=== PATIENT | male | born 1970 | race Caucasian/White ===

== ENCOUNTER 2020-05-10 10:32 | Observation (INO) ==
[2020-05-10 11:52] LABS: Basophils % 0.4 %; Eosinophils # 0.1 K/mcL (0.0-0.6); Eosinophils % 1.7 %; Hematocrit 50.5 % (37.5-50.1); Hemoglobin 17.3 g/dL (12.9-16.9); Immature Granulocytes % 0.3 % (0-4); Lymphocytes # 3.1 K/mcL (0.6-4.6); Lymphocytes % 40.6 %; Mean Corpuscular HGB Conc 34.3 g/dL (31.6-35.5); Mean Corpuscular Hemoglobin 31.1 pg (28.0-33.3); Mean Corpuscular Volume 90.8 fL (83.0-100.0); Mean Platelet Volume 10.6 fL (9.4-12.4); Monocytes # 0.7 K/mcL (0.0-1.3); Monocytes % 9.3 %; Neutrophils # 3.6 K/mcL (1.6-8.9); Platelet Count 208 K/mcL (140-400); Red Blood Count 5.56 M/mcL (4.19-5.50); Segmented Neutrophils % 47.7 %; White Blood Count 7.5 K/mcL (4.3-11.1)
[2020-05-10 11:55] LABS: INR 1.1; Prothrombin Time 12.4 Seconds (9.4-12.1)
[2020-05-10 11:58] LABS: Activated Partial Thrombo Time 30.9 Seconds (26.0-36.0)
[2020-05-10 12:12] LABS: BUN/Creatinine Ratio 12 (6-26); Blood Urea Nitrogen 13 mg/dL (6-20); Carbon Dioxide 25 mEq/L (23-29); Chloride 103 mEq/L (98-107); Glucose 105 mg/dL (70-105); Osmolality,Calculated 284 (280-300); Potassium 3.1 mEq/L (3.5-5.1); Sodium 137 mEq/L (136-145); eGFR For African Americans > 60 (> 60); eGFR For Non-African Americans > 60 (> 60)
[2020-05-10 12:22] LABS: Troponin I 0.06 ng/mL (< 0.04)
[2020-05-10] MEDS ORDERED: Aspirin 81 MG TAB.CHEW PO ONE (12:23)
[2020-05-10] MEDS ORDERED: Potassium Chloride Elixir 20 MEQ/15 ML UDC PO ONE (12:24)
[2020-05-10] MEDS ORDERED: *HR* Heparin 5,000 UNIT/ML VIAL IVP ONE (13:21)
[2020-05-10] MEDS ORDERED: Nitroglycerin 0.4 MG TAB.SUBL SL PRN (13:21)
[2020-05-10] MEDS ORDERED: *HR* Heparin 5,000 UNIT/ML VIAL IVP PRN ×2 (13:21)
[2020-05-10 14:07] LABS: Hematocrit 49.1 % (37.5-50.1); Hemoglobin 16.7 g/dL (12.9-16.9); Mean Corpuscular Hemoglobin 30.7 pg (28.0-33.3); Mean Corpuscular Volume 90.3 fL (83.0-100.0); Mean Platelet Volume 10.5 fL (9.4-12.4); Platelet Count 203 K/mcL (140-400); Red Blood Count 5.44 M/mcL (4.19-5.50); Red Cell Distribution Width 12.9 % (11.5-14.5); White Blood Count 7.8 K/mcL (4.3-11.1)
[2020-05-10 14:11] LABS: Heparin anti-factor XA UFH < 0.04 IU/mL (0.30-0.70); Prothrombin Time 12.1 Seconds (9.4-12.1)
[2020-05-10] MEDS: Heparin 25,000UNIT/250ML 1/2NS 25,000 UNIT/250 ML IV.SOLN IVC SCH (14:12)
[2020-05-10 14:27] LABS: Troponin I 0.06 ng/mL (< 0.04)
[2020-05-10 14:31] LABS: Magnesium 1.8 mg/dL (1.6-2.6)
[2020-05-10] MEDS ORDERED: Acetaminophen 325 MG TABLET PO PRN (15:09)
[2020-05-10] MEDS ORDERED: Ondansetron 4 MG/2 ML VIAL IVP PRN (15:09)
[2020-05-10 16:26] LABS: Estimated Average Glucose 108 mg/dl; Hemoglobin A1C 5.4 %
[2020-05-10 16:36] LABS: Chol/HDL Ratio 4.2 (0-4.9)
[2020-05-11 02:52] LABS: Hematocrit 47.6 % (37.5-50.1); Hemoglobin 16.2 g/dL (12.9-16.9); Mean Corpuscular Hemoglobin 30.7 pg (28.0-33.3); Mean Corpuscular Volume 90.2 fL (83.0-100.0); Mean Platelet Volume 10.6 fL (9.4-12.4); Platelet Count 205 K/mcL (140-400); Red Blood Count 5.28 M/mcL (4.19-5.50); White Blood Count 6.4 K/mcL (4.3-11.1)
[2020-05-11 03:11] LABS: BUN/Creatinine Ratio 13 (6-26); Blood Urea Nitrogen 15 mg/dL (6-20); Calcium 9.4 mg/dL (8.6-10.3); Carbon Dioxide 25 mEq/L (23-29); Chloride 104 mEq/L (98-107); Glucose 120 mg/dL (70-105); Osmolality,Calculated 286 (280-300); Potassium 3.4 mEq/L (3.5-5.1); Sodium 137 mEq/L (136-145); eGFR For African Americans > 60 (> 60); eGFR For Non-African Americans > 60 (> 60)
[2020-05-11] MEDS: Aspirin 81 MG TAB.CHEW PO SCH (07:56)
[2020-05-11] MEDS: amLODIPine 5 MG TABLET PO SCH (07:56)
[2020-05-11] MEDS ORDERED: Regadenoson 0.4 MG/5 ML SYRINGE IVP ONE (10:19)
[2020-05-11] MEDS: Heparin 25,000UNIT/250ML 1/2NS 25,000 UNIT/250 ML IV.SOLN IVC SCH (14:00)
[2020-05-12 07:22] VITALS: BP 117/72
[2020-05-12] MEDS: amLODIPine 5 MG TABLET PO SCH (09:03)
[2020-05-12] MEDS: Aspirin 81 MG TAB.CHEW PO SCH (09:03)
== END 2020-05-12 11:35 | disposition home or self-care (01) ==
LOC: 3BNU 10:32 → EMEROOARM 10:32 → 3BNU 14:45
PROVIDERS: ADMIT Internal Medicine; ATTEND Internal Medicine